=== PATIENT | male | born 1990 | race Two or more races ===

== ENCOUNTER 2024-06-07 00:48 | Emergency (ER) | payer OTHER ==
[~2024-06-07] VITALS: Ht 180.3 cm; Wt 113.4 kg
[2024-06-07] MEDS ORDERED: IBUPROFEN 400 MG TABLET ONE (01:18)
[2024-06-07] MEDS: IBUPROFEN 400 MG TABLET PO ONE (01:21)
[2024-06-07 03:26] VITALS: BP 140/71; TEMP 98; O2SAT 99
== END 2024-06-07 03:27 ==
LOC: ER 00:51
DX: M79.642 Pain in left hand (principal); W22.8XXA Striking against or struck by other objects, initial encounter; Y93.9 Activity, unspecified; Y92.89 Other specified places as the place of occurrence of the external cause; Y99.8 Other external cause status
CPT/HCPCS: 73130-TC